=== PATIENT | female | born 1970 | race Two or more races ===

== ENCOUNTER 2018-11-14 02:56 | Emergency (ER) | payer OTHER ==
[~2018-11-14] VITALS: Ht 167.6 cm; Wt 70.3 kg
[2018-11-14] MEDS ORDERED: cefTRIAXone SOD 1,000 MG VL IM ONE (03:30)
[2018-11-14] MEDS ORDERED: BENZOCAINE (DENTAL) 20 % SPRAY 60ML MT ONE (03:30)
[2018-11-14] MEDS ORDERED: ONDANSETRON ODT 4 MG TAB PO ONE (04:00)
[2018-11-14] MEDS ORDERED: MEPERIDINE HCL (50 MG/ML) 1 ML VIAL IM ONE (04:00)
[2018-11-14] MEDS ORDERED: LIDOCAINE 1% HCL (LOCAL ANESTH.) INJ 20ML MDV IJ ONE (04:00)
[2018-11-14 04:36] VITALS: BP 126/89
== END 2018-11-14 04:34 | disposition home or self-care (01) ==
LOC: EDBD 02:56 → ER 02:59
DX: K08.89 Other specified disorders of teeth and supporting structures (principal)
CPT/HCPCS: 96372; 99283; J0696; J2001; J2175; Q0162